=== PATIENT | male | born 1955 | race Caucasian/White ===

== ENCOUNTER 2017-04-28 16:05 | Emergency (ER) | payer MEDICARE, OTHER ==
[~2017-04-28] VITALS: Ht 182.9 cm; Wt 133.8 kg
--- NOTE | ~2017-04-28 | US85 ---
[facility] A Service of [facility] RADIOLOGY TEXT RESULTS PATIENT: MAYNOR ROTH LOCATION: [facility] : 57 UNIT #: [id number] AGE: [address]: Chayito Hernandez MD SEX: M ORDER DR: [id number] [facility] [address] [place], [place] [address] [id number] MR#: [id number] Acc #: [id number] NAME: MAYNOR ROTH : 1955 SEX: M STUDY DATE/TIME: 04/28/2017 18:40 UNIT: [facility] ROOM: STUDY DESCRIPTION: LE Veins Unilat or Ltd Stdy Attending Physician: Chayito Hernandez M.D. Referring Physician: Harvey Mccracken M.D. Ordering Physician: Chayito Hernandez M.D. Primary Care Physician: Harvey Mccracken M.D. MEDICAL IMAGING REPORT This report is preliminary unless electronic signature is present EXAM Left lower extremity venous duplex ultrasound 04/28/2017 HISTORY 62-year-old male with left leg pain for 5 days. COMPARISON None. FINDINGS Real time bliss-scale, color Doppler, and spectral Doppler analysis of the left lower extremity deep venous system demonstrates normal venous waveforms with normal compressibility and augmentation throughout. No evidence of left lower extremity deep venous thrombosis. IMPRESSION Negative for left lower extremity DVT. Dictated by... Terry Kimbrough M.D. THIS IS AN ELECTRONICALLY VERIFIED REPORT Terry Kimbrough M.D. at 04/29/2017 4:09 PM STEPHANIA/prema TD: 04/29/2017 10:16 JOB #: [id number] MEDICAL IMAGING REPORT Page 1 of 1 COPY
[~2017-04-28 16:05] MED LIST: ALPRAZOLAM PO; ALPRAZOLAM1 MG PO; AMOXIL500 M1 PO; ARISTOCORT A 0.15 GM TOP; ATARAX PO; BENADRYL PO; CIPRO PO; CLINDAMYCIN HC300 MG PO; CYMBALTA PO; CYPROHEPTADINE H4 MG PO; DULOXETINE HCL60 MG PO; FLAGYL PO; FLEXERIL PO; GLUCOPHAGE850 MG PO; HYDROCHLOROTH12.5 MG PO; HYDROXYZINE HCL25 M1 PO; IBUPROFEN800 MG PO; K-DUR10 MEQ PO; LORCET 10/650 T1 TAB PO; LORTAB 10/500 T1 TAB PO; LORTAB 5/500 TA1 TA1 PO; LORTAB 7.5-5001 TAB PO; MEDROL PO; MEDROL4 MG/DOSE- PO; METFORMIN HCL500 M2 PO; MINOCIN PO; NAPROXEN OP; NEURONTIN PO; NORCO 10-325 TA1 TAB PO; ORUDIS75 M1 DOB; PAXIL PO; PERCOCET5/325 PO; PHENERGAN25 MG PO; PRAVASTATIN SOD20 MG PO; PREDNISONE PO; PRILOSEC20 M1 PO; QUETIAPINE FUM300 MG PO; QUINIDINE SULF200 MG PO; SEROQUEL PO; SEROQUEL XR300 M1 PO; SKELAXIN PO; TORADOL10 MG PO; VISTARIL PO; WALGREENS PHARMACY; XANAX1 MG PO
[2017-04-28 18:58] LABS: BASOPHIL# 0.1 X10e3 (0-0.3); BASOPHIL% 0.9 % (0-2.5); EOSINOPHIL# 0.6 X10e3 (0-0.7); EOSINOPHIL% 4.3 % (0.0-7.0); HEMATOCRIT 42.7 % (38.0-50.0); LYMPHOCYTE% 23.3 % (17.0-45.0); MEAN CELL VOLUME 87.3 FL (83-96); MEAN CORPUSCULAR HEMOGLOBIN 28.7 PG (28-34); MEAN CORPUSCULAR HGB CONC 32.8 g/dL (30-36); MEAN PLATELET VOLUME 8.2 FL (6.5-11.5); MONOCYTE% 7.9 % (3.0-12.0); NEUTROPHIL# 8.3 X10e3 (1.5-7.1); NEUTROPHIL% 63.6 % (40-75); PLATELET COUNT 322 X10e3 (140-420); RED BLOOD COUNT 4.89 X10e (3.90-5.60); RED CELL DISTRIBUTION WIDTH 14.8 % (11.0-15.5)
[2017-04-28 19:00] LABS: DIFF IND NO
[2017-04-28 19:11] LABS: PARTIAL THROMBOPLASTIN TIME 25.7 SECONDS (23.5-31.3); PROTHROMBIN TIME (PATIENT) 10.6 SECONDS (10.0-11.7)
[2017-04-28 19:21] LABS: ALBUMIN SERUM 4.1 g/dL (3.5-5.0); BILIRUBIN, DIRECT 0.1 mg/dL (0.0-0.2); BILIRUBIN,INDIRECT 0.4 mg/dL (0.0-0.9); BILIRUBIN,TOTAL 0.5 mg/dL (0.2-2.0); BUN/CREATININE RATIO 15.55; CREATININE SERUM 0.9 mg/dL (0.6-1.4); GLOM FILT RATE Estimated 91.9 mL/min (>60); POTASSIUM 3.8 mmol/L (3.5-5.1); PROTEIN TOTAL SERUM 7.5 g/dL (6.0-8.3)
== END 2017-04-28 21:36 | disposition home or self-care (01) ==
LOC: CED 16:05
PROVIDERS: Emergency Medicine
DX: L03.115 Cellulitis of right lower limb (principal); E11.9 Type 2 diabetes mellitus without complications; I10 Essential (primary) hypertension; F32.9 Major depressive disorder, single episode, unspecified; F17.210 Nicotine dependence, cigarettes, uncomplicated; Z90.49 Acquired absence of other specified parts of digestive tract; Z79.899 Other long term (current) drug therapy
CPT/HCPCS: 36415; 80048; 80076; 83880; 85025; 85610; 85730; 93971; 96374; 99284; J3370

== ENCOUNTER 2017-05-02 16:13 | Emergency (ER) | payer MEDICARE, OTHER ==
[~2017-05-02] VITALS: Ht 182.9 cm; Wt 131.5 kg
== END 2017-05-02 19:58 | disposition home or self-care (01) ==
LOC: CED 16:13 → CFTX 16:13 → CED 18:37
DX: L03.115 Cellulitis of right lower limb (principal); Z90.49 Acquired absence of other specified parts of digestive tract; F41.9 Anxiety disorder, unspecified; F32.9 Major depressive disorder, single episode, unspecified; F17.210 Nicotine dependence, cigarettes, uncomplicated
CPT/HCPCS: 96372; 99283